=== PATIENT | male | born 1930 | race Hispanic/Latino ===

== ENCOUNTER 2018-09-14 21:15 | Inpatient (IN) | payer OTHER | END 2018-09-21 15:32 | disposition home or self-care (01) | LOC: EDH 21:15 → EDHIP 09-15 01:48 → 3CH 09-15 02:19 | DX: K83.09 Other cholangitis (principal); R17 Unspecified jaundice; N17.9 Acute kidney failure, unspecified; E44.0 Moderate protein-calorie malnutrition; E11.9 Type 2 diabetes mellitus without complications; I10 Essential (primary) hypertension ==

== ENCOUNTER 2018-10-16 14:37 | Emergency (ER) | payer OTHER ==
[~2018-10-16 14:37] MED LIST: AEC81 PO; AMOX-426 PO; ATOR40TA71 PO; CLOP75TA14 PO; ISOS60TA4 PO; LINA5TAB PO; LOSA50TA64 PO; OMEP40CA37 PO; SERT25TA5 PO
[2018-10-16 15:11] LABS: BASOPHILS % (AUTO) 0.9 % (0.0-5.0); EOSINOPHILS % (AUTO) 3.8 % (0.0-8.0); HEMATOCRIT 32.4 % (42-54); LYMPHOCYTES % (AUTO) 16.7 % (21.0-51.0); MEAN CORPUSCULAR HEMOGLOBIN 27.8 pg (27.0-33.0); MEAN CORPUSCULAR HGB CONC 33.7 g/dL (32.0-36.0); MEAN CORPUSCULAR VOLUME 82.5 fL (79-99); NEUTROPHILS % (AUTO) 69.6 % (40.0-77.0); NUCLEATED RED BLOOD CELLS 0.1 % (0.0-0.19); PLATELET COUNT (AUTO) 195 K/uL (130-400); RED BLOOD CELL COUNT(AUTO) 3.93 MIL/uL (4.50-6.20); RED CELL DISTRIBUTION WIDTH 17.2 % (11.0-15.5); WHITE BLOOD COUNT (AUTO) 9.7 K/uL (4.8-10.8)
[2018-10-16 15:26] LABS: POTASSIUM 4.1 mmol/L (3.5-5.1)
[2018-10-16 15:30] LABS: APPEARANCE,URINE Clear (CLEAR); BILIRUBIN,URINE Moderate (NEGATIVE); COLOR,URINE Dark Yellow (YELLOW); GLUCOSE, URINE (UA) Negative (NEGATIVE); KETONES,URINE Trace mg/dL (NEGATIVE); LEUKOCYTE ESTERASE ,URINE Trace (NEGATIVE); NITRATE,URINE Negative (NEGATIVE); OCCULT BLOOD,URINE Negative (NEGATIVE); PROTEIN,URINE Negative (NEGATIVE)
[2018-10-16 15:39] LABS: RBC,URINE 0-1 /HPF (0-1)
[2018-10-16 15:40] LABS: BACTERIA,URINE Few /HPF (None Seen); SQUAMOUS EPITHELIAL CELL,UR Rare /HPF (0-2)
== END 2018-10-16 17:54 | disposition home or self-care (01) ==
LOC: EDH 14:37
DX: R33.9 Retention of urine, unspecified (principal); N18.9 Chronic kidney disease, unspecified; E11.9 Type 2 diabetes mellitus without complications; I25.10 Atherosclerotic heart disease of native coronary artery without angina pectoris; E78.5 Hyperlipidemia, unspecified; Z91.048 Other nonmedicinal substance allergy status
CPT/HCPCS: 36415; 51702; 80048; 81001; 85025

== ENCOUNTER 2018-12-26 05:30 | Day surgery (SDC) | payer OTHER ==
[~2018-12-26] VITALS: Ht 162.6 cm; Wt 67.0 kg
[2018-12-26] VITALS (15 sets, daily range): BP systolic 135–180; BP diastolic 43–95
[~2018-12-26 05:30] MED LIST changes: -AMOX-426 PO
[2018-12-26] MEDS ORDERED: SODIUM CHLORIDE 0.9% 1000ML 1,000 ML IV ONE (05:46)
[2018-12-26] MEDS ORDERED: IOHEXOL-350 50ML VIAL IV ONE ×2 (05:55→05:56)
[2018-12-26] MEDS ORDERED: SUCCINYLCHOLINE 200MG/10ML SYR ONE (06:38)
[2018-12-26] MEDS ORDERED: PROPOFOL 10 MG/ML 20ML VIAL IV ONE (06:38)
[2018-12-26] MEDS ORDERED: ESMOLOL HCL 10 MG/ML 10 ML VIAL ONE (06:43)
[2018-12-26] MEDS ORDERED: EPHEDRINE SULFATE 50 MG/ML AMPULE ONE (06:57)
[2018-12-26] MEDS ORDERED: INDOMETHACIN 50 MG SUPP.RECT RC ONE (07:45)
--- NOTE | 2018-12-26 08:30 | NUR ---
ASSESSMENT RECEIVED PT FROM PACU STAFF JIMENA SPEARS. ABD SOFT TO TOUCH. DENIES ANY PAIN. FAMILY AT BEDSIDE. Addendum: 12/26/18 at 1032 by CIRILO TAN RN RN INDOMETHACIN GIVEN BY JIMENA OLIVARES PER JIMENA SPEARS
--- NOTE | 2018-12-26 10:25 | NUR ---
DISCHARGE ORAL AND WRITTEN DISCHARGE INSTRUCTIONS GIVEN TO PT AND PTS . INSTRUCTED ON IMPORTANCE OF KEEPING PT NPO UNTIL 200PM THEN CLEAR LIQUIDS UNTIL TOMORROW.
== END 2018-12-26 10:39 | disposition home or self-care (01) ==
LOC: DAH 05:30 → ENDO 05:30
PROVIDERS: ATTEND Internal Medicine
DX: C24.0 Malignant neoplasm of extrahepatic bile duct (principal); K83.1 Obstruction of bile duct; I10 Essential (primary) hypertension; E11.9 Type 2 diabetes mellitus without complications; E78.5 Hyperlipidemia, unspecified; R17 Unspecified jaundice; F41.9 Anxiety disorder, unspecified; F32.9 Major depressive disorder, single episode, unspecified; I25.2 Old myocardial infarction; Z95.1 Presence of aortocoronary bypass graft; Z98.890 Other specified postprocedural states; Z79.82 Long term (current) use of aspirin; Z79.899 Other long term (current) drug therapy; I25.10 Atherosclerotic heart disease of native coronary artery without angina pectoris
CPT/HCPCS: 43264; 43273; 43276; 43278; 74330; 82948 ×2; A4606; A4649; C1769; C1773; C1876; J0330; J2704; J3490 ×2; J7030; Q9967 ×2; G9654

== ENCOUNTER 2019-01-18 12:13 | Emergency (ER) | payer OTHER ==
[2019-01-18] MEDS ORDERED: KETOROLAC TROMETHAMINE 15MG/ML ONE (12:51)
[2019-01-18] MEDS ORDERED: ONDANSETRON HCL 4 MG/2 ML VIAL ONE (12:51)
[2019-01-18] MEDS ORDERED: SODIUM CHLORIDE 0.9% 500ML 500 ML IV ONE (12:52)
[2019-01-18 13:07] LABS: INR 1.02 (0.85-1.15); PARTIAL THROMBOPLASTIN TIME 24.5 SEC (26.3-35.5); PROTHROMBIN TIME 10.7 SEC (9.6-11.6)
[2019-01-18 13:08] LABS: BASOPHILS % (AUTO) 0.6 % (0.0-5.0); EOSINOPHILS % (AUTO) 1.2 % (0.0-8.0); HEMATOCRIT 34.3 % (42-54); LYMPHOCYTES % (AUTO) 28.6 % (21.0-51.0); MEAN CORPUSCULAR HEMOGLOBIN 26.6 pg (27.0-33.0); MEAN CORPUSCULAR HGB CONC 32.2 g/dL (32.0-36.0); MEAN CORPUSCULAR VOLUME 82.4 fL (79-99); MONOCYTES % (AUTO) 6.9 % (3.0-13.0); NEUTROPHILS % (AUTO) 62.7 % (40.0-77.0); PLATELET COUNT (AUTO) 270 K/uL (130-400); RED BLOOD CELL COUNT(AUTO) 4.16 MIL/uL (4.50-6.20); RED CELL DISTRIBUTION WIDTH 15.9 % (11.0-15.5); WHITE BLOOD COUNT (AUTO) 10.3 K/uL (4.8-10.8)
[2019-01-18 13:41] LABS: CREATININE 1.6 mg/dL (0.5-1.5); POTASSIUM 4.4 mmol/L (3.5-5.1)
[2019-01-18 13:47] LABS: BILIRUBIN,DIRECT 0.1 mg/dL (0.0-0.3); BILIRUBIN,TOTAL 0.3 mg/dL (0.2-1.0); TOTAL PROTEIN, SERUM 7.7 g/dL (6.0-8.3)
== END 2019-01-18 16:18 | disposition home or self-care (01) ==
LOC: EDH 12:13
DX: D01.5 Carcinoma in situ of liver, gallbladder and bile ducts (principal); R10.13 Epigastric pain; E11.9 Type 2 diabetes mellitus without complications; E78.5 Hyperlipidemia, unspecified; I25.10 Atherosclerotic heart disease of native coronary artery without angina pectoris; Z88.8 Allergy status to other drugs, medicaments and biological substances
CPT/HCPCS: 36415; 74176; 76705; 80048; 80076; 82550; 83690; 84484; 85025; 85610; 85730; 93005; 96374; 96375; 99285; J1885; J2405; J7040